=== PATIENT | female | born 1995 | race Asian ===

== ENCOUNTER 2019-07-15 20:40 | Emergency (ER) | payer BC ==
[~2019-07-15] VITALS: Ht 165.1 cm; Wt 49.0 kg
[2019-07-15 20:57] VITALS: Ht 165.1 cm; Wt 49.0 kg
[2019-07-15 21:26] LABS: BASOPHIL % 1.1 % (0-2); PLATELET COUNT 198 x10^3mcL (130-400)
[2019-07-15 23:04] VITALS: BP 101/73
== END 2019-07-15 23:00 | disposition home or self-care (01) ==
LOC: ED 20:40
PROVIDERS: Emergency Medicine
DX: O20.0 Threatened abortion (principal); Z91.018 Allergy to other foods
CPT/HCPCS: 36415; Q0092